=== PATIENT | female | born 1960 | race Caucasian/White ===

== ENCOUNTER 2018-03-27 22:31 | Emergency (ER) | payer SELFPAY, OTHER ==
[2018-03-28] MEDS: HYDROCODONE/APAP (5/325) TAB PO (02:08)
== END 2018-03-28 03:26 | disposition home or self-care (01) ==
LOC: FTE 22:31
DX: S92.354A Nondisplaced fracture of fifth metatarsal bone, right foot, initial encounter for closed fracture (principal); W19.XXXA Unspecified fall, initial encounter; Y92.9 Unspecified place or not applicable
CPT/HCPCS: 73610; 73610-RT; 73630; 99283-25